=== PATIENT | female | born 1985 | race Caucasian/White ===

== ENCOUNTER 2016-03-26 22:37 | Emergency (ER) | payer SELFPAY ==
[~2016-03-26] VITALS: Ht 172.7 cm; Wt 115.9 kg
[~2016-03-26 22:37] MED LIST: INSULIN SQ; LANTUS2P SQ; NOVOLOGP2 SQ
[2016-03-26 22:39] VITALS: BP 135/84; PULSE 101; RESP 16; TEMP 98.1; O2SAT 98
[2016-03-27 00:43] VITALS: BP 124/77; PULSE 88; RESP 18; O2SAT 98
[2016-03-27] MEDS ORDERED: LEVEMIR SQ ×2 (00:55→03:04)
--- NOTE | 2016-03-27 01:19 | RADRPT ---
EXAM DATE/TIME: 03/27/2016 01:13 [facility] COMPARISON: CHEST PA & LAT, February 28, 2016, 1:41. CHEST SINGLE AP, August 31, 2014, 17:24. INDICATIONS : Generalized weakness. MEDICAL HISTORY : None. SURGICAL HISTORY : None. ENCOUNTER: Initial ACUITY: 2 days PAIN SCORE: 1/10 LOCATION: Bilateral chest FINDINGS: A single view of the chest demonstrates the lungs to be symmetrically aerated without evidence of mas s, infiltrate or effusion. The cardiomediastinal contours are unremarkable. Osseous structures are intact. CONCLUSION: Normal examination for a patient of this age. No significant change has occurred. Marcos Tellez MD on March 27, 2016 at 1:17 Board Certified Radiologist. This report was verified electronically.
[2016-03-27] MEDS ORDERED: SODIUM CHLOR 0.9% 1000 ML INJ 1,000 ML IV ONE ×2 (01:30→02:15)
[2016-03-27] MEDS ORDERED: ONDANSETRON HCL 4 MG/2 ML VIAL IV ONE (01:30)
--- NOTE | 2016-03-27 01:35 | PD ---
HPI Chief Complaint: Dizziness Time Seen by Provider: 00:43 Travel History International Travel<30 days: No Contact w/Intl Traveler<30days: No Traveled to known affect area: No History of Present Illness HPI The patient is a 31 year old female who presents to the [facility] emergency department with a history of lightheaded sensation that she reports began yesterday. She reports that it began after she was cooking at approximately 8 PM. She reports that she began to feel lightheaded and dizzy and had a sensation that her heart was racing. She laid down on the ground for approximately 2 hours and the symptoms seemed to gradually improve. She reports that since then she's just had generalized weakness. She reports that she's had nausea and vomiting 2 yesterday. She reports that she's had persistent nausea without vomiting today. She reports that she's had diarrhea that began today. She reports that she's moved her bowels 3-4 times. She denies having any blood in her stool or black or tarry stools. She reports that she is an insulin-dependent diabetic. She was last admitted to the hospital with DKA in February. She reports that she ran out of her Levemir on Saturday and has not been able to get in touch with her primary care physician, Dr. Mabry. She reports that she is on 50 units twice a day. She reports that she last administered this on Saturday morning. She reports that this morning her blood sugar was last checked and found to be in the 300s. She reports that at that time she did administer 15 units of NovoLog. She reports having generalized body aches. The patient denies any recent fevers, cough, congestion , neck pain, chest pain, shortness of breath, abdominal pain, urinary symptoms, or neurologic symptoms. LMP February 29, 2016 [facility] Past Medical History Narrative Medical The patient's past medical history is significant for diabetes mellitus, insulin -dependent, diagnosed in 2010, hyperlipidemia, migraine headaches, history of syncope in 2009. Anxiety: Yes Depression: Yes Cancer: Yes (HX) Cardiovascular Problems: No Chemotherapy: No Cerebrovascular Accident: No Diabetes: Yes Patient Takes Glucophage: No Diminished Hearing: No Endocrine: Yes Gastrointestinal Disorders: No Genitourinary: No Headaches: Yes Immune Disorder: No Implanted Vascular Access Dvce: No Musculoskeletal: No Neurologic: Yes Psychiatric: Yes Reproductive: Yes Respiratory: No Immunizations Current: Yes Migraines: Yes Radiation Therapy: No Seizures: No Thyroid Disease: No ?: Not LMP: 03/04/16 : 0 Ovarian Cysts: Yes Past Surgical History Narrative Surgical The patient's past surgical history is significant for cholecystectomy, LEEP procedure. Abdominal Surgery: Yes (GALL BLADDER) AICD: No Arteriovenous Shunt: No Cardiac Surgery: No Cholecystectomy: Yes Ear Surgery: No Endocrine Surgery: No Genitourinary Surgery: Yes Gynecologic Surgery: Yes (LEEP) Insulin Pump: No Joint Replacement: No Oral Surgery: No Pacemaker: No Thoracic Surgery: No Other Surgery: Yes Social History Alcohol Use: No Tobacco Use: Yes (EVERY ONCE IN A WHILE) Substance Use: No Allergies-Medications (Allergen,Severity, Reaction): Coded Allergies: Dilaudid (Verified Allergy, Severe, RASH, SEVERE STOMACH PAINS, 03/27/16) Lantus (Verified Allergy, Severe, 03/27/16) PT STATES MED CAUSES MILD DKA Morphine (Verified Allergy, Severe, ITCHING, HYSTERICAL, 03/27/16) Shellfish (Verified Allergy, Unknown, 03/27/16) Reported Meds & Prescriptions Reported Meds & Active Scripts Active Levemir Inj (Insulin Detemir) 1,000 unit/ 10 ML Vial 50 Units SQ BID 30 Days Do not mix with any other Insulin. [Insulin syringes] Box SQ Use as directed Novolog Inj (Insulin Aspart) 1,000 Unit/10 Ml Vial 0 SQ DIRECTED Sliding Scale as directed. Reported Levemir Inj (Insulin Detemir) 1,000 unit/ 10 ML Vial 50 Units SQ BID Do not mix with any other Insulin. Review of Systems Except as stated in HPI: all other systems reviewed are Neg General / Constitutional: No: Fever Eyes: No: Visual changes HENT: Positive: Lightheadedness, No: Headaches Cardiovascular: Positive: Palpitations, Tachycardia, Syncope (near-syncope), No: Chest Pain or Discomfort Respiratory: No: Shortness of Breath Gastrointestinal: Positive: Nausea, Vomiting, Diarrhea, Changes in Bowel Habits , Loss of Appetite, No: Abdominal Pain, Indigestion Genitourinary: No: Dysuria Musculoskeletal: No: Pain Skin: No Rash Neurologic: Positive: Weakness (generalized weakness), Dizziness, No: Focal Abnormalities, Change in Mentation, Slurred Speech, Sensory Disturbance Psychiatric: No: Depression Endocrine: No: Polydipsia Hematologic/Lymphatic: No: Easy Bruising Physical Exam Narrative General: The patient is a well-developed well-nourished female in no acute distress. Head and Neck exam: Head is normocephalic atraumatic. Eyes: Pupils are equal round and reactive to light. Nose: Midline septum with pink mucous membranes Mouth: Dentition unremarkable. Moist mucus membranes. Posterior oropharynx is not erythematous. No tonsillar hypertrophy. Uvula midline. Airway patent. Neck: No palpable lymphadenopathy. No nuchal rigidity. No thyromegaly. Cardiovascular: Regular rate and rhythm without murmurs, gallops, or rubs. Lungs: Clear to auscultation bilaterally. No wheezes, rhonchi, or rales. Abdomen: Soft, without tenderness to palpation in all 4 quadrants of the abdomen. No guarding, rebound, or rigidity. Normal bowel sounds are audible. Extremities: No clubbing, cyanosis, or edema. 2+ pulses in all 4 extremities. No calf tenderness on palpation. Back: No spinous process tenderness to palpation. No costovertebral angle tenderness to palpation. Neurologic Exam: Grossly nonfocal. Skin Exam: No rash noted. Intact skin that is warm and dry. Data Data Last Documented VS Vital Signs Date Time Temp Pulse Resp B/P Pulse Ox O2 Delivery O2 Flow Rate FiO2 03/27/16 01:54 69 18 115/70 75 20 108/70 69 18 113/78 03/27/16 00:43 97 Room Air 03/26/16 22:39 98.1 Orders Electrocardiogram (03/26/16 22:45) Complete Blood Count With Diff (03/27/16 00:50) Comprehensive Metabolic Panel (03/27/16 00:50) Creatine Kinase (Cpk) (03/27/16 00:50) Ckmb (Isoenzyme) Profile (03/27/16 00:50) Troponin I (03/27/16 00:50) Lipase (03/27/16 00:50) Urinalysis - C+S If Indicated (03/27/16 00:50) D-Dimer (03/27/16 00:50) Magnesium (Mg) (03/27/16 00:50) Alcohol (Ethanol) (03/27/16 00:50) Drug Screen, Random Urine (03/27/16 00:50) Beta Hydroxybutyrate (Acetone) (03/27/16 00:50) Chest, Single Ap (03/27/16 00:50) Iv Access Insert/Monitor (03/27/16 00:50) Ecg Monitoring (03/27/16 00:50) Oximetry (03/27/16 00:50) Ed Urine Pregnancytest Poc (03/27/16 00:50) Sodium Chlor 0.9% 1000 Ml Inj (Ns 1000 M (03/27/16 01:30) Ondansetron Inj (Zofran Inj) (03/27/16 01:30) Orthostatic Vital Signs (03/27/16 01:35) Sodium Chlor 0.9% 1000 Ml Inj (Ns 1000 M (03/27/16 02:15) Insulin Human Regular Inj (Novolin R Inj (03/27/16 02:30) Blood Glucose (03/27/16 02:30) Labs Laboratory Tests Test 03/27/16 01:00 White Blood Count 8.8 TH/MM3 Red Blood Count 4.96 MIL/MM3 Hemoglobin 14.0 GM/DL Hematocrit 41.9 % Mean Corpuscular Volume 84.4 FL Mean Corpuscular Hemoglobin 28.3 PG Mean Corpuscular Hemoglobin 33.5 % Concent Red Cell Distribution Width 13.1 % Platelet Count 307 TH/MM3 Mean Platelet Volume 10.2 FL Neutrophils (%) (Auto) 66.0 % Lymphocytes (%) (Auto) 22.5 % Monocytes (%) (Auto) 7.9 % Eosinophils (%) (Auto) 2.8 % Basophils (%) (Auto) 0.8 % Neutrophils # (Auto) 5.8 TH/MM3 Lymphocytes # (Auto) 2.0 TH/MM3 Monocytes # (Auto) 0.7 TH/MM3 Eosinophils # (Auto) 0.2 TH/MM3 Basophils # (Auto) 0.1 TH/MM3 CBC Comment DIFF FINAL Differential Comment D-Dimer Quantitative (PE/DVT) 0.23 MG/L FEU Urine Color LIGHT-YELLOW Urine Turbidity CLEAR Urine pH 5.5 Urine Specific Parnell 1.038 Urine Protein NEG mg/dL Urine Glucose (UA) 1000 mg/dL Urine Ketones 80 mg/dL Urine Occult Blood NEG Urine Nitrite NEG Urine Bilirubin NEG Urine Urobilinogen LESS THAN 2.0 MG/DL Urine Leukocyte Esterase NEG Urine RBC 1 /hpf Urine WBC LESS THAN 1 /hpf Urine Squamous Epithelial 1 /hpf Cells Urine Bacteria RARE /hpf Microscopic Urinalysis Comment CULT NOT INDICATED Sodium Level 134 MEQ/L Potassium Level 3.8 MEQ/L Chloride Level 99 MEQ/L Carbon Dioxide Level 23.9 MEQ/L Anion Gap 11 MEQ/L Blood Urea Nitrogen 13 MG/DL Creatinine 0.71 MG/DL Estimat Glomerular Filtration 96 ML/MIN Rate Random Glucose 384 MG/DL Calcium Level 8.8 MG/DL Magnesium Level 1.6 MG/DL Total Bilirubin 0.5 MG/DL Aspartate Amino Transf 9 U/L (AST/SGOT) Alanine Aminotransferase 17 U/L (ALT/SGPT) Alkaline Phosphatase 16 U/L Total Creatine Kinase 32 U/L Troponin I LESS THAN 0.02 NG/ML Total Protein 7.4 GM/DL Albumin 3.3 GM/DL Lipase 58 U/L Urine Opiates Screen NEG Urine Barbiturates Screen NEG Urine Amphetamines Screen NEG Urine Benzodiazepines Screen NEG Urine Cocaine Screen NEG Urine Cannabinoids Screen POS Ethyl Alcohol Level LESS THAN 3 MG/DL B-Hydroxybutyrate 1.12 MMOL/L MDM Medical Decision Making Medical Screen Exam Complete: Yes Emergency Medical Condition: Yes Medical Record Reviewed: Yes Interpretation(s) Last Impressions Chest X-Ray 03/27/16 0050 Signed Impressions: Service Date/Time: Sunday, March 27, 2016 01:13 - CONCLUSION: Normal examination for a patient of this age. No significant change has occurred. Marcos Tellez MD Differential Diagnosis Vasovagal near syncope, versus orthostasis, versus dehydration, versus DKA, versus hyperglycemia Narrative Course During the course of the patients emergency department visit, the patients history, examination, and differential diagnosis were reviewed with the patient. The patient had IV access obtained and blood work sent for analysis. The patient was placed on a athletic monitor with oximetry and blood pressure monitoring. An EKG was ordered. The patient's EKG was done on arrival. The patient has a normal sinus rhythm heart rate of 93, no acute ST segment elevation. T waves are inverted in V1. Orthostatic vital signs were ordered. Orthostatic vital signs were unremarkable. The patient was provided normal saline 1 L IV fluid bolus which was repeated 1. The patient was given Zofran 4 mg IV times one for nausea. The patients laboratory studies were reviewed and remarkable for a CBC that is unremarkable. CMP is remarkable for sodium of 134, glucose 384 with a normal anion gap, AST 9, alkaline phosphatase 16, cardiac enzymes unremarkable, lipase 58, d-dimer is 0.23 decreased the likelihood of pulmonary embolism in this patient with no other significant risk factors. Urinalysis shows 10 glucose 80 ketones otherwise unremarkable. Urine drug screen is positive for marijuana, beta hydroxybutyrate is 1.12, alcohol less than 3. Radiology studies were reviewed and remarkable for a chest x-ray that showed no acute abnormality. The patient's blood sugar will be repeated after her liter of normal saline. The patient's blood sugar was 413. The patient was given regular insulin 10 units subcutaneous 1. The patient's second liter of fluid will be continued. The patient's blood sugar will be repeated in an hour. The patient's lightheaded sensation is likely related to dehydration from hyperglycemia and not being on her Levemir. The patient will be hydrated. The patient's blood sugar will be improved. The patient will be discharged home with a prescription for Levemir. The patient's blood sugar began to improve and the patient was feeling well. The patient is resting comfortably and feels better, is alert and in no distress. The patients results and examination findings were discussed with the patient. The repeat examination is unremarkable and benign. The history, exam, diagnostic testing, and current condition do not suggest any significant pathology to warrant further testing, continued ED treatment, admission, or surgical evaluation at this point. The vital signs have been stable. The patient does not have uncontrollable pain, intractable vomiting, or other significant symptoms. The patient's condition is stable and appropriate for discharge. The patient will pursue further outpatient evaluation with a primary care physician or other designated or consulting physician as indicated in the discharge instructions. The patient expressed understanding and was agreeable with this plan. Diagnosis Primary Impression: Hyperglycemia Additional Impression: Lightheadedness Referrals: Primary Care Physician 2 days Patient Instructions: Diabetic Hyperglycemia (ED), General Instructions Med/Other Pt SpecificInfo: Prescription(s) given Scripts Insulin Detemir Inj (Levemir Inj)1,000 unit/ 10 ML Vial50 Units SQ BID 30 Days Ref 0 Do not mix with any other Insulin. Prov:Yuridia Benton MD 03/27/16 Disposition: DISCHARGE HOME Condition: Stable Yuridia Benton MD Mar 27, 2016 01:34
[2016-03-27 01:36] LABS: BACTERIA, URINE RARE /hpf; BLOOD, URINE NEG (NEG); COMMENT (UR) CULT NOT INDICATED; CULTURE IF INDICATED CULT NOT INDICATED; GLUCOSE,URINE 1000 mg/dL (NEG); KETONE, URINE 80 mg/dL (NEG); NITRITE,URINE NEG (NEG); PH, URINE 5.5 (5.0-8.5); SQUAMOUS EPITHELIAL CELL URINE 1 /hpf (0-5); URINE COLOR LIGHT-YELLOW (YELLW/STRAW)
[2016-03-27 01:42] LABS: AMPHETAMINE, URINE NEG (NEG); BARBITURATES, URINE NEG (NEG); COCAINE, URINE NEG (NEG)
[2016-03-27 01:50] LABS: AUTOMATED NEUTROPHIL # 5.8 TH/MM3 (1.8-7.7); BASOPHIL # 0.1 TH/MM3 (0-0.2); BASOPHIL % 0.8 % (0.0-2.0); EOSINOPHIL # 0.2 TH/MM3 (0-0.4); EOSINOPHIL % 2.8 % (0.0-4.0); HEMATOCRIT 41.9 % (35.0-46.0); HEMO FLAGS DIFF FINAL; LYMPH % 22.5 % (9.0-44.0); MEAN CELL VOLUME 84.4 FL (80.0-100.0); MEAN CORPUSCULAR HEMOGLOBIN 28.3 PG (27.0-34.0); MEAN CORPUSCULAR HGB CONC 33.5 % (32.0-36.0); MONO % 7.9 % (0.0-8.0); PLATELET COUNT 307 TH/MM3 (150-450); RED BLOOD COUNT 4.96 MIL/MM3 (4.00-5.30); RED CELL DISTRIBUTION WIDTH 13.1 % (11.6-17.2); WHITE BLOOD COUNT 8.8 TH/MM3 (4.0-11.0)
[2016-03-27 01:54] VITALS: BP_SYST 108; BP_SYST 113; BP_SYST 115; BP_DIAS 70; BP_DIAS 78; RESP 18; RESP 20
[2016-03-27 01:58] LABS: ALT (GPT) 17 U/L (10-53); ANION GAP 11 MEQ/L (5-15); AST (GOT) 9 U/L (15-37); BICARBONATE 23.9 MEQ/L (21.0-32.0); BLOOD UREA NITROGEN 13 MG/DL (7-18); CHLORIDE 99 MEQ/L (98-107); GLOMERULAR FILTRATION RATE 96 ML/MIN (>89); MAGNESIUM 1.6 MG/DL (1.5-2.5); POTASSIUM 3.8 MEQ/L (3.5-5.1); SODIUM (NA) 134 MEQ/L (136-145)
[2016-03-27 02:01] LABS: ALKALINE PHOSPHATASE 16 U/L (45-117); BETA-HYDROXYBUTYRATE 1.12 MMOL/L (0.00-0.39); TOTAL BILIRUBIN ADULT 0.5 MG/DL (0.2-1.0)
[2016-03-27 02:20] LABS: CREATINE KINASE 32 U/L (26-192)
[2016-03-27] MEDS ORDERED: INSULIN HUMAN REGULAR 1,000 UNITS/10 ML VIAL SQ ONE (02:30)
--- NOTE | 2016-03-27 16:47 | EKG ---
Date Performed: 03/26/2016 Time Performed: 22:51:49 PTAGE: 31 years EKG: Sinus rhythm Compared to prior tracing no significant change NORMAL ECG PREVIOUS TRACING 02/28/2016 @ 00.53.33 DOCTOR: Brooke Miguel Interpretating Date/Time 03/27/2016 16:45:31
[2016-03-28] MEDS ORDERED: LEVEMIR SQ ×2 (09:10→09:19)
[2016-03-28] MEDS ORDERED: NOVOLOGP2 SQ ×2 (09:10→09:19)
[2016-03-28] MEDS ORDERED: INSULIN SQ ×2 (09:10→09:19)
[2016-03-28] MEDS ORDERED: GABA300C5 PO ×2 (09:19→09:20)
[2016-03-28] MEDS ORDERED: BAYETES (09:19)
== END 2016-03-27 05:31 | disposition home or self-care (01) ==
LOC: NEPC 22:37
DX: R73.9 Hyperglycemia, unspecified (principal); R11.2 Nausea with vomiting, unspecified; R19.7 Diarrhea, unspecified; E11.8 Type 2 diabetes mellitus with unspecified complications; Z79.4 Long term (current) use of insulin; R42 Dizziness and giddiness; R53.1 Weakness
CPT/HCPCS: 71010; 80053; 80307; 80320; 81001; 82010; 82550; 83690; 83735; 84484; 84703; 85025; 85379; 93005; 96361; 96372; 96374; 99285; J1815; J2405; J7030

== ENCOUNTER 2016-04-22 22:23 | Emergency (ER) | payer SELFPAY ==
[~2016-04-22] VITALS: Ht 172.7 cm; Wt 115.0 kg
[~2016-04-22 22:23] MED LIST changes: +BAYETES; +GABA300C5 PO; -LANTUS2P SQ; +LEVEMIR SQ
[2016-04-22 22:25] VITALS: BP 129/82; PULSE 102; RESP 20; TEMP 98; O2SAT 98
[2016-04-23] MEDS ORDERED: ONDANSETRON HCL 4 MG/2 ML VIAL IV ONE
[2016-04-23 00:11] LABS: BLOOD GAS BASE EXCESS -3.4 mmol/L (-2-2); BLOOD GAS CARBOXYHEMOGLOBIN 2.2 % (0-4); BLOOD GAS HCO3 20 mmol/L (22-26); BLOOD GAS METHEMOGLOBIN 1.8 % (0-2); BLOOD GAS O2 HGB SATURATION 93 % (90-100); BLOOD GAS OXYGEN CONTENT 18.5 Vol % (12.0-20.0); BLOOD GAS PCO2 31 mmHg (38-42); BLOOD GAS PO2 93 mmHG (61-120); CRITICAL VALUE NO; DRAW SITE RT RADIAL; FIO2 21 %; NUMBER OF ARTERIAL PUNCTURES 1; STAT YES; TEMP CORR TO 98.6; ULNAR PULSE PRESENT
[2016-04-23 00:21] VITALS: BP 112/66; PULSE 79; RESP 18; TEMP 97.8; O2SAT 99
[2016-04-23 00:26] LABS: AUTOMATED NEUTROPHIL # 6.6 TH/MM3 (1.8-7.7); BASOPHIL # 0.1 TH/MM3 (0-0.2); BASOPHIL % 1.2 % (0.0-2.0); EOSINOPHIL # 0.1 TH/MM3 (0-0.4); EOSINOPHIL % 1.4 % (0.0-4.0); HEMATOCRIT 40.9 % (35.0-46.0); HEMO FLAGS DIFF FINAL; LYMPH % 17.1 % (9.0-44.0); LYMPHOCYTE # 1.5 TH/MM3 (1.0-4.8); MEAN CELL VOLUME 84.9 FL (80.0-100.0); MEAN CORPUSCULAR HEMOGLOBIN 29.3 PG (27.0-34.0); MEAN CORPUSCULAR HGB CONC 34.5 % (32.0-36.0); MONO % 5.9 % (0.0-8.0); NEUT % 74.4 % (16.0-70.0); PLATELET COUNT 298 TH/MM3 (150-450); RED BLOOD COUNT 4.82 MIL/MM3 (4.00-5.30); RED CELL DISTRIBUTION WIDTH 13.1 % (11.6-17.2); WHITE BLOOD COUNT 8.9 TH/MM3 (4.0-11.0)
[2016-04-23 00:29] LABS: BACTERIA, URINE RARE /hpf; BLOOD, URINE NEG (NEG); GLUCOSE,URINE 1000 mg/dL (NEG); HYALINE CAST, URINE 1 /lpf (RARE); KETONE, URINE 150 mg/dL (NEG); MUCUS URINE FEW /lpf (OCC); NITRITE,URINE NEG (NEG); PH, URINE 5.5 (5.0-8.5); SQUAMOUS EPITHELIAL CELL URINE 9 /hpf (0-5); URINE COLOR LIGHT-YELLOW (YELLW/STRAW)
[2016-04-23 00:30] LABS: COMMENT (UR) CULT NOT INDICATED; CULTURE IF INDICATED CULT NOT INDICATED
--- NOTE | 2016-04-23 00:43 | RADRPT ---
EXAM DATE/TIME: 04/23/2016 00:26 [facility] COMPARISON: CHEST SINGLE AP, March 27, 2016, 1:13. INDICATIONS : Shortness of breath. MEDICAL HISTORY : None. SURGICAL HISTORY : None. ENCOUNTER: Initial ACUITY: 1 day PAIN SCORE: 0/10 LOCATION: Bilateral chest FINDINGS: A single view of the chest demonstrates the lungs to be symmetrically aerated without evidence of mas s, infiltrate or effusion. The cardiomediastinal contours are unremarkable. Osseous structures are intact. CONCLUSION: No acute disease. John Flores MD on April 23, 2016 at 0:41 Board Certified Radiologist. This report was verified electronically.
[2016-04-23 00:50] LABS: ALT (GPT) 20 U/L (10-53); ANION GAP 14 MEQ/L (5-15); AST (GOT) 15 U/L (15-37); BICARBONATE 23.3 MEQ/L (21.0-32.0); BLOOD UREA NITROGEN 9 MG/DL (7-18); CHLORIDE 98 MEQ/L (98-107); GLOMERULAR FILTRATION RATE 94 ML/MIN (>89); MAGNESIUM 1.6 MG/DL (1.5-2.5); POTASSIUM 3.8 MEQ/L (3.5-5.1); SODIUM (NA) 135 MEQ/L (136-145)
[2016-04-23 00:53] LABS: ALKALINE PHOSPHATASE 18 U/L (45-117); BETA-HYDROXYBUTYRATE 3.45 MMOL/L (0.00-0.39); TOTAL BILIRUBIN ADULT 0.7 MG/DL (0.2-1.0)
[2016-04-23] MEDS ORDERED: INSULIN HUMAN REGULAR 1,000 UNITS/10 ML VIAL IV PUSH ONE (01:00)
[2016-04-23] MEDS ORDERED: SODIUM CHLOR 0.9% 1000 ML INJ 1,000 ML IV ONE ×2 (01:00)
--- NOTE | 2016-04-23 02:45 | PD ---
HPI Chief Complaint: GI Complaint Time Seen by Provider: 23:51 Travel History International Travel<30 days: No Contact w/Intl Traveler<30days: No Traveled to known affect area: No History of Present Illness HPI The patient is a 31 year old female who presents to the [facility] emergency department with a history of nausea, vomiting, and diarrhea that began yesterday. She reports that it began after she ate a taco that tasted strange prior to this. The patient reports that she last checked her blood sugar prior to arrival and was 317. She reports that she was first diagnosed with diabetes mellitus and 2009. Reports that she last administered 50 units of Levemir in the morning. She reports that she last gave herself NovoLog 12 units at 7:55 PM today. The patient denies having any focal abdominal pain. She reports having generalized abdominal pain prior to having the diarrhea. She reports that she's had nausea and vomiting 15 times today, diarrhea 15 times today. She reports that the stool is yellow in color. She denies having any blood or mucus in her stool. She denies having any sick contacts, foreign travel, or recent antibiotic use. The patient denies any recent fevers, cough, congestion, neck pain, chest pain, shortness of breath, urinary symptoms, or neurologic symptoms. LMP: End March 2016. [facility] Past Medical History Narrative Medical The patient's past medical history is significant for diabetes mellitus, hyperlipidemia, migraine headaches, history of syncope, history of cervical dysplasia. Anxiety: Yes Depression: Yes Cancer: Yes (HX) Cardiovascular Problems: No Chemotherapy: No Cerebrovascular Accident: No Diabetes: Yes Patient Takes Glucophage: No Diminished Hearing: No Endocrine: Yes Gastrointestinal Disorders: No Genitourinary: No Headaches: Yes Immune Disorder: No Implanted Vascular Access Dvce: No Musculoskeletal: No Neurologic: Yes Psychiatric: Yes Reproductive: Yes Respiratory: No Immunizations Current: Yes Migraines: Yes Radiation Therapy: No Seizures: No Thyroid Disease: No ?: Not LMP: 03/28/16 : 0 Ovarian Cysts: Yes Past Surgical History Narrative Surgical The patient's past surgical history significant for a cholecystectomy, LEEP procedure. Abdominal Surgery: Yes (GALL BLADDER) AICD: No Arteriovenous Shunt: No Cardiac Surgery: No Cholecystectomy: Yes Ear Surgery: No Endocrine Surgery: No Genitourinary Surgery: Yes Gynecologic Surgery: Yes (LEEP) Insulin Pump: No Joint Replacement: No Oral Surgery: No Pacemaker: No Thoracic Surgery: No Other Surgery: Yes Social History Alcohol Use: No Tobacco Use: Yes (EVERY ONCE IN A WHILE) Substance Use: No Allergies-Medications (Allergen,Severity, Reaction): Coded Allergies: Dilaudid (Verified Allergy, Severe, RASH, SEVERE STOMACH PAINS, 04/22/16) Lantus (Verified Allergy, Severe, 04/22/16) PT STATES MED CAUSES MILD DKA Morphine (Verified Allergy, Severe, ITCHING, HYSTERICAL, 04/22/16) Shellfish (Verified Allergy, Unknown, 04/22/16) Reported Meds & Prescriptions Reported Meds & Active Scripts Active Zofran Odt (Ondansetron Odt) 4 Mg Tab 4 Mg SL Q6HR PRN Gabapentin 300 Mg Cap 300 Mg PO TID [employer] Contour Blood Gluco (Glucose Blood) 1 Kari Kari 1 Strip .ROUTE 5 TIMES A DAY Patient is a brittle diabetic that needs to check her blood glucose at least 5times daily. Levemir Inj (Insulin Detemir) 1,000 unit/ 10 ML Vial 50 Units SQ BID Do not mix with any other Insulin. [Insulin syringes] Box SQ Use as directed Novolog Inj (Insulin Aspart) 1,000 Unit/10 Ml Vial 0 SQ DIRECTED Sliding Scale as directed. Review of Systems Except as stated in HPI: all other systems reviewed are Neg General / Constitutional: No: Fever Eyes: No: Visual changes HENT: No: Headaches Cardiovascular: No: Chest Pain or Discomfort Respiratory: No: Shortness of Breath Gastrointestinal: Positive: Nausea, Vomiting, Diarrhea, Abdominal Pain, Changes in Bowel Habits, No: Hematemesis, Hematochezia, Indigestion, Loss of Appetite Genitourinary: Positive: Frequency, No: Urgency, Dysuria, Flank Pain Musculoskeletal: No: Pain Skin: No Rash Neurologic: No: Weakness Psychiatric: No: Depression Endocrine: No: Polydipsia Hematologic/Lymphatic: No: Easy Bruising Physical Exam Narrative General: The patient is well-developed well-nourished female in no acute distress. Head and Neck exam: Head is normocephalic atraumatic. Eyes: Pupils are equal round and reactive to light. Nose: Midline septum with pink mucous membranes Mouth: Dentition unremarkable. Moist mucus membranes. Posterior oropharynx is not erythematous. No tonsillar hypertrophy. Uvula midline. Airway patent. Neck: No palpable lymphadenopathy. No nuchal rigidity. No thyromegaly. Cardiovascular: Regular rate and rhythm without murmurs, gallops, or rubs. Lungs: Clear to auscultation bilaterally. No wheezes, rhonchi, or rales. Abdomen: Soft, without tenderness to palpation in all 4 quadrants of the abdomen. No guarding, rebound, or rigidity. Normal bowel sounds are audible. No tenderness on palpation of McBurney's point. Negative García sign. Extremities: No clubbing, cyanosis, or edema. 2+ pulses in all 4 extremities. No calf tenderness on palpation. Back: No spinous process tenderness to palpation. No costovertebral angle tenderness to palpation. Neurologic Exam: Grossly nonfocal. Skin Exam: No rash noted. Intact skin that is warm and dry. Data Data Last Documented VS Vital Signs Date Time Temp Pulse Resp B/P Pulse Ox O2 Delivery O2 Flow Rate FiO2 04/23/16 03:59 98.4 85 18 110/69 100 Room Air Orders Electrocardiogram (04/22/16 23:57) Complete Blood Count With Diff (04/22/16 23:57) Comprehensive Metabolic Panel (04/22/16 23:57) Arterial Blood Gas (Abg) (04/22/16 23:57) Lipase (04/22/16 23:57) Urinalysis - C+S If Indicated (04/22/16 23:57) Magnesium (Mg) (04/22/16 23:57) Beta Hydroxybutyrate (Acetone) (04/22/16 23:57) Chest, Single Ap (04/22/16 23:57) Iv Access Insert/Monitor (04/22/16 23:57) Ecg Monitoring (04/22/16 23:57) Oximetry (04/22/16 23:57) Ed Urine Pregnancytest Poc (04/22/16 23:57) Sodium Chlor 0.9% 1000 Ml Inj (Ns 1000 M (04/23/16 00:00) Ondansetron Inj (Zofran Inj) (04/23/16 00:00) Sodium Chlor 0.9% 1000 Ml Inj (Ns 1000 M (04/23/16 01:00) Insulin Human Regular Inj (Novolin R Inj (04/23/16 01:00) Oral Rehydration (04/23/16 01:03) Blood Glucose (04/23/16 01:03) Insulin Human Regular Inj (Novolin R Inj (04/23/16 03:45) Acetaminophen (Tylenol) (04/23/16 04:15) Labs Laboratory Tests Test 04/23/16 04/23/16 00:01 00:14 Blood Gas Puncture Site RT RADIAL Blood Gas Patient Temperature 98.6 Blood Gas HCO3 20 mmol/L Blood Gas Base Excess -3.4 mmol/L Blood Gas Oxygen Saturation 93 % Arterial Blood pH 7.43 Arterial Blood Partial 31 mmHg Pressure CO2 Arterial Blood Partial 93 mmHG Pressure O2 Arterial Blood Oxygen Content 18.5 Vol % Arterial Blood 2.2 % Carboxyhemoglobin Arterial Blood Methemoglobin 1.8 % Blood Gas Hemoglobin 14.0 G/DL Blood Gas Inspired Oxygen 21 % White Blood Count 8.9 TH/MM3 Red Blood Count 4.82 MIL/MM3 Hemoglobin 14.1 GM/DL Hematocrit 40.9 % Mean Corpuscular Volume 84.9 FL Mean Corpuscular Hemoglobin 29.3 PG Mean Corpuscular Hemoglobin 34.5 % Concent Red Cell Distribution Width 13.1 % Platelet Count 298 TH/MM3 Mean Platelet Volume 10.1 FL Neutrophils (%) (Auto) 74.4 % Lymphocytes (%) (Auto) 17.1 % Monocytes (%) (Auto) 5.9 % Eosinophils (%) (Auto) 1.4 % Basophils (%) (Auto) 1.2 % Neutrophils # (Auto) 6.6 TH/MM3 Lymphocytes # (Auto) 1.5 TH/MM3 Monocytes # (Auto) 0.5 TH/MM3 Eosinophils # (Auto) 0.1 TH/MM3 Basophils # (Auto) 0.1 TH/MM3 CBC Comment DIFF FINAL Differential Comment Urine Color LIGHT-YELLOW Urine Turbidity HAZY Urine pH 5.5 Urine Specific [place] 1.019 Urine Protein NEG mg/dL Urine Glucose (UA) 1000 mg/dL Urine Ketones 150 mg/dL Urine Occult Blood NEG Urine Nitrite NEG Urine Bilirubin NEG Urine Urobilinogen LESS THAN 2.0 MG/DL Urine Leukocyte Esterase NEG Urine RBC LESS THAN 1 /hpf Urine WBC 2 /hpf Urine Squamous Epithelial 9 /hpf Cells Urine Bacteria RARE /hpf Urine Hyaline Casts 1 /lpf Urine Mucus FEW /lpf Microscopic Urinalysis Comment CULT NOT INDICATED Sodium Level 135 MEQ/L Potassium Level 3.8 MEQ/L Chloride Level 98 MEQ/L Carbon Dioxide Level 23.3 MEQ/L Anion Gap 14 MEQ/L Blood Urea Nitrogen 9 MG/DL Creatinine 0.72 MG/DL Estimat Glomerular Filtration 94 ML/MIN Rate Random Glucose 369 MG/DL Calcium Level 9.0 MG/DL Magnesium Level 1.6 MG/DL Total Bilirubin 0.7 MG/DL Aspartate Amino Transf 15 U/L (AST/SGOT) Alanine Aminotransferase 20 U/L (ALT/SGPT) Alkaline Phosphatase 18 U/L Total Protein 7.5 GM/DL Albumin 3.6 GM/DL Lipase 68 U/L B-Hydroxybutyrate 3.45 MMOL/L MDM Medical Decision Making Medical Screen Exam Complete: Yes Emergency Medical Condition: Yes Medical Record Reviewed: Yes Interpretation(s) Laboratory Tests Test 04/23/16 04/23/16 00:01 00:14 Blood Gas Puncture Site RT RADIAL Blood Gas Patient Temperature 98.6 Blood Gas HCO3 20 mmol/L Blood Gas Base Excess -3.4 mmol/L Blood Gas Oxygen Saturation 93 % Arterial Blood pH 7.43 Arterial Blood Partial 31 mmHg Pressure CO2 Arterial Blood Partial 93 mmHG Pressure O2 Arterial Blood Oxygen Content 18.5 Vol % Arterial Blood 2.2 % Carboxyhemoglobin Arterial Blood Methemoglobin 1.8 % Blood Gas Hemoglobin 14.0 G/DL Blood Gas Inspired Oxygen 21 % White Blood Count 8.9 TH/MM3 Red Blood Count 4.82 MIL/MM3 Hemoglobin 14.1 GM/DL Hematocrit 40.9 % Mean Corpuscular Volume 84.9 FL Mean Corpuscular Hemoglobin 29.3 PG Mean Corpuscular Hemoglobin 34.5 % Concent Red Cell Distribution Width 13.1 % Platelet Count 298 TH/MM3 Mean Platelet Volume 10.1 FL Neutrophils (%) (Auto) 74.4 % Lymphocytes (%) (Auto) 17.1 % Monocytes (%) (Auto) 5.9 % Eosinophils (%) (Auto) 1.4 % Basophils (%) (Auto) 1.2 % Neutrophils # (Auto) 6.6 TH/MM3 Lymphocytes # (Auto) 1.5 TH/MM3 Monocytes # (Auto) 0.5 TH/MM3 Eosinophils # (Auto) 0.1 TH/MM3 Basophils # (Auto) 0.1 TH/MM3 CBC Comment DIFF FINAL Differential Comment Urine Color LIGHT-YELLOW Urine Turbidity HAZY Urine pH 5.5 Urine Specific [place] 1.019 Urine Protein NEG mg/dL Urine Glucose (UA) 1000 mg/dL Urine Ketones 150 mg/dL Urine Occult Blood NEG Urine Nitrite NEG Urine Bilirubin NEG Urine Urobilinogen LESS THAN 2.0 MG/DL Urine Leukocyte Esterase NEG Urine RBC LESS THAN 1 /hpf Urine WBC 2 /hpf Urine Squamous Epithelial 9 /hpf Cells Urine Bacteria RARE /hpf Urine Hyaline Casts 1 /lpf Urine Mucus FEW /lpf Microscopic Urinalysis Comment CULT NOT INDICATED Sodium Level 135 MEQ/L Potassium Level 3.8 MEQ/L Chloride Level 98 MEQ/L Carbon Dioxide Level 23.3 MEQ/L Anion Gap 14 MEQ/L Blood Urea Nitrogen 9 MG/DL Creatinine 0.72 MG/DL Estimat Glomerular Filtration 94 ML/MIN Rate Random Glucose 369 MG/DL Calcium Level 9.0 MG/DL Magnesium Level 1.6 MG/DL Total Bilirubin 0.7 MG/DL Aspartate Amino Transf 15 U/L (AST/SGOT) Alanine Aminotransferase 20 U/L (ALT/SGPT) Alkaline Phosphatase 18 U/L Total Protein 7.5 GM/DL Albumin 3.6 GM/DL Lipase 68 U/L B-Hydroxybutyrate 3.45 MMOL/L Last Impressions Chest X-Ray 04/22/16 5051 Signed Impressions: Service Date/Time: Saturday, April 23, 2016 00:26 - CONCLUSION: No acute disease. John Flores MD Differential Diagnosis Viral versus bacterial gastroenteritis, versus DKA, versus hyperglycemia, versus electrolyte derangements, versus dehydration Narrative Course During the course of the patients emergency department visit, the patients history, examination, and differential diagnosis were reviewed with the patient. The patient had IV access obtained and blood work sent for analysis. The patient was placed on a frit coater with oximetry and blood pressure monitoring. The patient was provided in total 2 L of normal saline IV fluids. The patients laboratory studies were reviewed and remarkable for white count of 8.9, hemoglobin 14.1, platelets 298 with 74.4 neutrophils, ABG reveals a pH of 7.43, PCO2 is 31, bicarbonate 20, PO2 93, this is on room air. CMP is remarkable for sodium of 135, glucose 369, alkaline phosphatase 18, lipase 68, urinalysis shows 1000 glucose, ketones 150, rare bacteria, however there were 9 squamous epithelial cells, beta hydroxybutyrate is 3.45. The patient is not noted to be acidotic, therefore the plan is to administer IV fluids and assess for ability to by mouth hydrate. The patient was given 6 units of regular insulin IV 1. The patient's blood sugar was reassessed and began to improve. The patient was given regular insulin 5 units subcutaneous. The patient's Levemir was held as it is 4 AM and the patient will be administering this when she returns home. The patient has been able to tolerate by mouth liquids. The patient will be discharged home with a prescription for Zofran. Radiology studies were reviewed and remarkable for a chest x-ray that showed no acute abnormality. The patient is resting comfortably and feels better, is alert and in no distress. The patients results and examination findings were discussed with the patient. The repeat examination is unremarkable and benign. The history, exam, diagnostic testing, and current condition do not suggest any significant pathology to warrant further testing, continued ED treatment, admission, or surgical evaluation at this point. The vital signs have been stable. The patient does not have uncontrollable pain, intractable vomiting, or other significant symptoms. The patient's condition is stable and appropriate for discharge. The patient will pursue further outpatient evaluation with a primary care physician or other designated or consulting physician as indicated in the discharge instructions. The patient expressed understanding and was agreeable with this plan. Diagnosis Primary Impression: Nausea vomiting and diarrhea Referrals: Primary Care Physician 1 day Patient Instructions: Acute Diarrhea (ED), Acute Nausea and Vomiting (ED), Diabetic Hyperglycemia (ED), General Instructions Med/Other Pt SpecificInfo: Prescription(s) given Scripts Ondansetron Odt (Zofran Odt)4 Mg Tab4 Mg SL Q6HR PRN (Nausea/Vomiting) #7 TAB Ref 0 Prov:Yuridia Benton MD 04/23/16 Disposition: 01 DISCHARGE HOME Condition: Stable Yuridia Benton MD Apr 23, 2016 02:45
[2016-04-23] MEDS ORDERED: INSULIN HUMAN REGULAR 1,000 UNITS/10 ML VIAL SQ ONE (03:45)
[2016-04-23] MEDS ORDERED: ZOFR4TAB3 SL (03:58)
[2016-04-23 03:59] VITALS: BP 110/69; PULSE 85; RESP 18; TEMP 98.4; O2SAT 100
[2016-04-23] MEDS ORDERED: ACETAMINOPHEN 325 MG TAB PO ONE (04:15)
--- NOTE | 2016-04-23 14:22 | EKG ---
Date Performed: 04/23/2016 Time Performed: 00:09:09 PTAGE: 31 years EKG: Sinus rhythm WITH MARKED SINUS ARRHYTHMIA BORDERLINE ECG PREVIOUS TRACING : 03/26/2016 22.51 DOCTOR: Syd Villegas Interpretating Date/Time 04/23/2016 14:18:32
== END 2016-04-23 04:49 | disposition home or self-care (01) ==
LOC: NEPE 22:23
DX: R19.7 Diarrhea, unspecified (principal); R11.2 Nausea with vomiting, unspecified; E11.9 Type 2 diabetes mellitus without complications; E78.5 Hyperlipidemia, unspecified; Z72.0 Tobacco use; I49.8 Other specified cardiac arrhythmias
CPT/HCPCS: 36600; 71010; 80053; 81001; 82010; 82805; 83690; 83735; 84703; 85025; 93005; 96361; 96372; 96374; 96375; 99285; J1815; J2405; J7030

== ENCOUNTER 2016-06-28 08:29 | Emergency (ER) | payer SELFPAY ==
[~2016-06-28] VITALS: Ht 172.7 cm; Wt 110.0 kg
[~2016-06-28 08:29] MED LIST changes: +ZOFR4TAB3 SL
[2016-06-28 08:31] VITALS: BP 130/83; PULSE 98; RESP 20; TEMP 98; O2SAT 100
[2016-06-28] MEDS ORDERED: CLINDAMYCIN INJ 900 MG in SODIUM CHLORIDE 0.9% INJ 100 ML IV STA (08:57)
[2016-06-28] MEDS ORDERED: SODIUM CHLOR 0.9% 1000 ML INJ 1,000 ML IV ONE (08:57)
[2016-06-28 09:00] VITALS: BP 114/79; PULSE 91; RESP 20; O2SAT 98
[2016-06-28] MEDS ORDERED: IBUPROFEN 600 MG TAB PO ONE (09:00)
--- NOTE | 2016-06-28 09:04 | PD ---
HPI Chief Complaint: Diabetic Time Seen by Provider: 08:57 Travel History International Travel<30 days: No Contact w/Intl Traveler<30days: No Traveled to known affect area: No History of Present Illness HPI 31-year-old female with history of diabetes, states she ran out of medications yesterday, has had a 3 day history of left thigh spot that she thought was a spider bite, has been getting more red, tender, swollen and increasing in size, and she is here because of the left thigh pain and infection. She states that her sugars have been high because she ran out of medications. She denies any fevers, vomiting, or any other symptoms. Modifying Factors: None Associated Signs & Symptoms: Left thigh area redness, swelling Risk Factors: Diabetic PFSH Past Medical History Anxiety: Yes Depression: Yes Cancer: Yes (HX) Cardiovascular Problems: No Chemotherapy: No Cerebrovascular Accident: No Diabetes: Yes Patient Takes Glucophage: No Diminished Hearing: No Endocrine: Yes Gastrointestinal Disorders: No Genitourinary: No Headaches: Yes Immune Disorder: No Implanted Vascular Access Dvce: No Musculoskeletal: No Neurologic: Yes Psychiatric: Yes Reproductive: Yes Respiratory: No Immunizations Current: Yes Migraines: Yes Radiation Therapy: No Seizures: No Thyroid Disease: No Tetanus Vaccination: < 5 Years Influenza Vaccination: Yes ?: Not LMP: 06/08/16 : 0 Ovarian Cysts: Yes Past Surgical History Abdominal Surgery: Yes (GALL BLADDER) AICD: No Arteriovenous Shunt: No Cardiac Surgery: No Cholecystectomy: Yes Ear Surgery: No Endocrine Surgery: No Genitourinary Surgery: Yes Gynecologic Surgery: Yes (LEEP) Insulin Pump: No Joint Replacement: No Oral Surgery: No Pacemaker: No Thoracic Surgery: No Other Surgery: Yes Social History Alcohol Use: No Tobacco Use: No (denies) Substance Use: No Allergies-Medications (Allergen,Severity, Reaction): Coded Allergies: Dilaudid (Verified Allergy, Severe, RASH, SEVERE STOMACH PAINS, 04/22/16) Lantus (Verified Allergy, Severe, 04/22/16) PT STATES MED CAUSES MILD DKA Morphine (Verified Allergy, Severe, ITCHING, HYSTERICAL, 04/22/16) Shellfish (Verified Allergy, Unknown, 04/22/16) Reported Meds & Prescriptions Reported Meds & Active Scripts Active Motrin Ib (Ibuprofen) 200 Mg Tab 600 Mg PO Q6H PRN Clindamycin (Clindamycin HCl) 300 Mg Cap 600 Mg PO Q8H 7 Days [employer] Contour Blood Gluco (Glucose Blood) 1 Kari Kari 1 Strip .ROUTE 5 TIMES A DAY Patient is a brittle diabetic that needs to check her blood glucose at least 5times daily. Levemir Inj (Insulin Detemir) 1,000 unit/ 10 ML Vial 50 Units SQ BID Do not mix with any other Insulin. [Insulin syringes] Box SQ Use as directed Novolog Inj (Insulin Aspart) 1,000 Unit/10 Ml Vial 0 SQ DIRECTED Sliding Scale as directed. Gabapentin 300 Mg Cap 300 Mg PO TID Review of Systems Except as stated in HPI: all other systems reviewed are Neg Physical Exam Narrative GENERAL: Well-developed young white female patient who is currently not in acute distress. SKIN: Focused skin assessment warm/dry. HEAD: Atraumatic. Normocephalic. EYES: Pupils equal and round. No scleral icterus. No injection or drainage. ENT: No nasal bleeding or discharge. Mucous membranes pink and moist. NECK: Trachea midline. No JVD. CARDIOVASCULAR: Regular rate and rhythm. No murmur appreciated. RESPIRATORY: No accessory muscle use. Clear to auscultation. Breath sounds equal bilaterally. GASTROINTESTINAL: Abdomen soft, non-tender, nondistended. Hepatic and splenic margins not palpable. MUSCULOSKELETAL: No obvious deformities. No clubbing. No cyanosis. No edema. Left thigh: There is a notable in tensely indurated 3 cm left thigh area with surrounding erythema, very tender to palpation. Firm. NEUROLOGICAL: Awake and alert. No obvious cranial nerve deficits. Motor grossly within normal limits. Normal speech. PSYCHIATRIC: Appropriate mood and affect; insight and judgment normal. Data Data Last Documented VS Vital Signs Date Time Temp Pulse Resp B/P Pulse Ox O2 Delivery O2 Flow Rate FiO2 06/28/16 09:00 98 Room Air 06/28/16 09:00 91 20 114/79 06/28/16 08:31 98.0 Orders Complete Blood Count With Diff (06/28/16 08:57) Comprehensive Metabolic Panel (06/28/16 08:57) Lactic Acid Sepsis Protocol (06/28/16 08:57) Blood Culture (06/28/16 08:57) Wound Culture And Gram Stain (06/28/16 08:57) Blood Glucose (06/28/16 08:57) Ecg Monitoring (06/28/16 08:57) Iv Access Insert/Monitor (06/28/16 08:57) Oximetry (06/28/16 08:57) Oxygen Administration (06/28/16 08:57) Ibuprofen (Motrin) (06/28/16 09:00) Clindamycin Inj (Cleocin Inj) (06/28/16 08:57) Sodium Chlor 0.9% 1000 Ml Inj (Ns 1000 M (06/28/16 08:57) Beta Hydroxybutyrate (Acetone) (06/28/16 08:59) Lidocaine 1% Inj (50 Ml) (Xylocaine 1% I (06/28/16 09:15) Insulin Human Regular Inj (Novolin R Inj (06/28/16 10:30) Labs Laboratory Tests Test 06/28/16 09:15 White Blood Count 8.9 TH/MM3 Red Blood Count 4.90 MIL/MM3 Hemoglobin 13.7 GM/DL Hematocrit 42.0 % Mean Corpuscular Volume 85.8 FL Mean Corpuscular Hemoglobin 28.0 PG Mean Corpuscular Hemoglobin 32.7 % Concent Red Cell Distribution Width 12.7 % Platelet Count 278 TH/MM3 Mean Platelet Volume 10.2 FL Neutrophils (%) (Auto) 70.0 % Lymphocytes (%) (Auto) 17.4 % Monocytes (%) (Auto) 8.2 % Eosinophils (%) (Auto) 3.7 % Basophils (%) (Auto) 0.7 % Neutrophils # (Auto) 6.2 TH/MM3 Lymphocytes # (Auto) 1.5 TH/MM3 Monocytes # (Auto) 0.7 TH/MM3 Eosinophils # (Auto) 0.3 TH/MM3 Basophils # (Auto) 0.1 TH/MM3 CBC Comment DIFF FINAL Differential Comment Sodium Level 130 MEQ/L Potassium Level 4.1 MEQ/L Chloride Level 99 MEQ/L Carbon Dioxide Level 19.1 MEQ/L Anion Gap 12 MEQ/L Blood Urea Nitrogen 9 MG/DL Creatinine 0.75 MG/DL Estimat Glomerular Filtration 90 ML/MIN Rate Random Glucose 492 MG/DL Lactic Acid Level 1.2 mmol/L Calcium Level 8.7 MG/DL Total Bilirubin 0.5 MG/DL Aspartate Amino Transf 14 U/L (AST/SGOT) Alanine Aminotransferase 17 U/L (ALT/SGPT) Alkaline Phosphatase 15 U/L Total Protein 7.3 GM/DL Albumin 3.1 GM/DL B-Hydroxybutyrate 1.87 MMOL/L MDM Medical Decision Making Medical Screen Exam Complete: Yes Emergency Medical Condition: Yes Medical Record Reviewed: Yes Interpretation(s) Laboratory Tests Test 06/28/16 09:15 Monocytes (%) (Auto) 8.2 % (0.0-8.0) Sodium Level 130 MEQ/L (136-145) Carbon Dioxide Level 19.1 MEQ/L (21.0-32.0) Random Glucose 492 MG/DL (74-106) Aspartate Amino Transf 14 U/L (15-37) (AST/SGOT) Alkaline Phosphatase 15 U/L (45-117) Albumin 3.1 GM/DL (3.4-5.0) B-Hydroxybutyrate 1.87 MMOL/L (0.00-0.39) Differential Diagnosis Left thigh wound infection, abscess, hyperglycemiarule out other electrolyte abnormalities versus DKA Narrative Course Lab work shows significant leukocytosis and some elevation in ketones levels. Patient is given IV fluids and insulin ER. Blood sugar is 300 on reevaluation. Vital signs are stable in the ER. Lactate levels are unremarkable. I&D was performed on the left thigh abscess. At this point, patient had also received IV clindamycin after cultures have been done. My plan would be to release the patient with follow-up to primary care physician. Wound care instructions given. The plan was discussed with the patient and she states understanding. Diagnosis Primary Impression: DM (diabetes mellitus) Additional Impression: Abscess of left thigh Med/Other Pt SpecificInfo: Prescription(s) given Scripts Ibuprofen (Motrin Ib)200 Mg [id number] Mg PO Q6H PRN (PAIN SCALE 1 TO 10) #20 TAB Ref 0 Prov:Emma Yoon MD 06/28/16 Clindamycin 300 Mg Vug450 Mg PO Q8H 7 Days Ref 0 Prov:Emma Yoon MD 06/28/16 Glucose Blood (Otis Contour Blood Gluco)1 Kari Tes1 Strip .ROUTE 5 TIMES A DAY #150 BOX Patient is a brittle diabetic that needs to check her blood glucose at least 5times daily. Prov:Emma Yoon MD 06/28/16 Insulin Detemir Inj (Levemir Inj)1,000 unit/ 10 ML Vial50 Units SQ BID #3 VIAL Ref 0 Do not mix with any other Insulin. Prov:Emma Yoon MD 06/28/16 [Insulin syringes] No Conflict Check #1 BOX SQ Ref 0 Use as directed Prov:Emma Yoon MD 06/28/16 Insulin Aspart Inj (Novolog Inj)1,000 Unit/10 Ml Vial SQ DIRECTED #10 ML Ref 0 Sliding Scale as directed. Prov:Emma Yoon MD 06/28/16 Disposition: 01 DISCHARGE HOME Condition: Stable Emma Yoon MD Jun 28, 2016 09:04
[2016-06-28] MEDS ORDERED: LIDOCAINE HCL 1% 50 ML VIAL INFIL ONE (09:15)
[2016-06-28 09:39] LABS: AUTOMATED NEUTROPHIL # 6.2 TH/MM3 (1.8-7.7); BASOPHIL # 0.1 TH/MM3 (0-0.2); BASOPHIL % 0.7 % (0.0-2.0); EOSINOPHIL # 0.3 TH/MM3 (0-0.4); EOSINOPHIL % 3.7 % (0.0-4.0); HEMO FLAGS DIFF FINAL; LYMPH % 17.4 % (9.0-44.0); LYMPHOCYTE # 1.5 TH/MM3 (1.0-4.8); MEAN CELL VOLUME 85.8 FL (80.0-100.0); MEAN CORPUSCULAR HGB CONC 32.7 % (32.0-36.0); MONO % 8.2 % (0.0-8.0); PLATELET COUNT 278 TH/MM3 (150-450); RED CELL DISTRIBUTION WIDTH 12.7 % (11.6-17.2); WHITE BLOOD COUNT 8.9 TH/MM3 (4.0-11.0)
--- NOTE | 2016-06-28 09:44 | PD ---
Physical Exam Time Seen by Provider: 09:41 Narrative I was asked to incise and drain the abscess to the left upper medial thigh. Data Data Last Documented VS Vital Signs Date Time Temp Pulse Resp B/P Pulse Ox O2 Delivery O2 Flow Rate FiO2 06/28/16 09:00 98 Room Air 06/28/16 09:00 91 20 114/79 06/28/16 08:31 98.0 Orders Complete Blood Count With Diff (06/28/16 08:57) Comprehensive Metabolic Panel (06/28/16 08:57) Lactic Acid Sepsis Protocol (06/28/16 08:57) Blood Culture (06/28/16 08:57) Wound Culture And Gram Stain (06/28/16 08:57) Blood Glucose (06/28/16 08:57) Ecg Monitoring (06/28/16 08:57) Iv Access Insert/Monitor (06/28/16 08:57) Oximetry (06/28/16 08:57) Oxygen Administration (06/28/16 08:57) Ibuprofen (Motrin) (06/28/16 09:00) Clindamycin Inj (Cleocin Inj) (06/28/16 08:57) Sodium Chlor 0.9% 1000 Ml Inj (Ns 1000 M (06/28/16 08:57) Beta Hydroxybutyrate (Acetone) (06/28/16 08:59) Lidocaine 1% Inj (50 Ml) (Xylocaine 1% I (06/28/16 09:15) Labs Laboratory Tests Test 06/28/16 09:15 White Blood Count 8.9 TH/MM3 Red Blood Count 4.90 MIL/MM3 Hemoglobin 13.7 GM/DL Hematocrit 42.0 % Mean Corpuscular Volume 85.8 FL Mean Corpuscular Hemoglobin 28.0 PG Mean Corpuscular Hemoglobin 32.7 % Concent Red Cell Distribution Width 12.7 % Platelet Count 278 TH/MM3 Mean Platelet Volume 10.2 FL Neutrophils (%) (Auto) 70.0 % Lymphocytes (%) (Auto) 17.4 % Monocytes (%) (Auto) 8.2 % Eosinophils (%) (Auto) 3.7 % Basophils (%) (Auto) 0.7 % Neutrophils # (Auto) 6.2 TH/MM3 Lymphocytes # (Auto) 1.5 TH/MM3 Monocytes # (Auto) 0.7 TH/MM3 Eosinophils # (Auto) 0.3 TH/MM3 Basophils # (Auto) 0.1 TH/MM3 CBC Comment DIFF FINAL Differential Comment MDM Medical Record Reviewed: Yes Supervised Visit with MARTIN: Yes Narrative Course I incise and drain the abscess to the left upper medial thigh. See my procedure note. Procedures Procedure Narrative INCISION AND DRAINAGE OF ABSCESS: The area was prepped and was sterilely draped. A subcutaneous wheal of present 1% Xylocaine with a total number 3 mL was used to anesthetize the area properly. A number 11 scalpel was used to make a 1 -cm incision across the area of the abscess. The abscess was drained, complex loculations were broken down, and irrigated with normal saline. Cultures were obtained. Quarter inch iodoform packing was placed in the wound. Sterile dressing applied. Patient advised to have packing removed in two days. Codi Arreaga Jun 28, 2016 09:44
[2016-06-28 10:11] LABS: ALKALINE PHOSPHATASE 15 U/L (45-117); ALT (GPT) 17 U/L (10-53); ANION GAP 12 MEQ/L (5-15); AST (GOT) 14 U/L (15-37); BICARBONATE 19.1 MEQ/L (21.0-32.0); BLOOD UREA NITROGEN 9 MG/DL (7-18); CHLORIDE 99 MEQ/L (98-107); GLOMERULAR FILTRATION RATE 90 ML/MIN (>89); POTASSIUM 4.1 MEQ/L (3.5-5.1); SODIUM (NA) 130 MEQ/L (136-145); TOTAL BILIRUBIN ADULT 0.5 MG/DL (0.2-1.0)
[2016-06-28] MEDS ORDERED: LEVEMIR SQ (10:25)
[2016-06-28] MEDS ORDERED: BAYETES (10:25)
[2016-06-28] MEDS ORDERED: INSULIN SQ (10:25)
[2016-06-28] MEDS ORDERED: MOTR200T4 PO (10:25)
[2016-06-28] MEDS ORDERED: CLIN1CAP6 PO (10:25)
[2016-06-28] MEDS ORDERED: NOVOLOGP2 SQ (10:25)
[2016-06-28] MEDS ORDERED: INSULIN HUMAN REGULAR 1,000 UNITS/10 ML VIAL IV PUSH ONE (10:30)
[2016-06-28 11:00] VITALS: BP 133/80; PULSE 86; RESP 20; O2SAT 100
== END 2016-06-28 11:58 | disposition home or self-care (01) ==
LOC: NEPC 08:29
DX: L02.416 Cutaneous abscess of left lower limb (principal); E11.9 Type 2 diabetes mellitus without complications; B95.62 Methicillin resistant Staphylococcus aureus infection as the cause of diseases classified elsewhere; Z79.4 Long term (current) use of insulin
CPT/HCPCS: 10061; 80053; 82010; 83605; 85025; 86403; 87040; 87070; 87186; 96361; 96365; 96375; 99284; J1815; J7030

== ENCOUNTER 2016-06-30 18:26 | Emergency (ER) | payer SELFPAY ==
[~2016-06-30] VITALS: Ht 172.7 cm; Wt 110.0 kg
[~2016-06-30 18:26] MED LIST changes: +CLIN1CAP6 PO; +MOTR200T4 PO; -ZOFR4TAB3 SL
[2016-06-30 18:28] VITALS: BP 122/77; PULSE 86; RESP 15; TEMP 97.6; O2SAT 96
--- NOTE | 2016-06-30 18:53 | PD ---
HPI . left thigh abscess Chief Complaint: Wound/Suture/Staple Re-Check Time Seen by Provider: 18:53 Travel History International Travel<30 days: No Contact w/Intl Traveler<30days: No Traveled to known affect area: No History of Present Illness HPI 31-year-old female here with complaints of left thigh abscess. Patient was previously hospitalized for diabetes and had a left thigh abscess that was drained. Packing was placed approximately 48 hours ago and patient was advised to come to the emergency department to have it reassessed and repacked if necessary. The area of cellulitis was outlined with a skin marker and is significantly improved. Denies any fever or chills and she is taking her medications as prescribed. She does complain of pain to the area. PFSH Past Medical History Anxiety: Yes Depression: Yes Cancer: Yes (HX) Cardiovascular Problems: No Chemotherapy: No Cerebrovascular Accident: No Diabetes: Yes Patient Takes Glucophage: No Diminished Hearing: No Endocrine: Yes Gastrointestinal Disorders: No Genitourinary: No Headaches: Yes Immune Disorder: No Implanted Vascular Access Dvce: No Musculoskeletal: No Neurologic: Yes Psychiatric: Yes Reproductive: Yes Respiratory: No Immunizations Current: Yes Migraines: Yes Radiation Therapy: No Seizures: No Thyroid Disease: No Tetanus Vaccination: < 5 Years Influenza Vaccination: Yes ?: Not LMP: 06/02/16 : 0 Ovarian Cysts: Yes Past Surgical History Abdominal Surgery: Yes (GALL BLADDER) AICD: No Arteriovenous Shunt: No Cardiac Surgery: No Cholecystectomy: Yes Ear Surgery: No Endocrine Surgery: No Genitourinary Surgery: Yes Gynecologic Surgery: Yes (LEEP) Insulin Pump: No Joint Replacement: No Neurologic Surgery: No Oral Surgery: No Pacemaker: No Thoracic Surgery: No Other Surgery: Yes Social History Alcohol Use: No Tobacco Use: No (denies) Substance Use: No Allergies-Medications (Allergen,Severity, Reaction): Coded Allergies: Dilaudid (Verified Allergy, Severe, RASH, SEVERE STOMACH PAINS, 06/30/16) Morphine (Verified Allergy, Severe, ITCHING, HYSTERICAL, 06/30/16) Shellfish (Verified Allergy, Unknown, 06/30/16) Reported Meds & Prescriptions Reported Meds & Active Scripts Active Motrin Ib (Ibuprofen) 200 Mg Tab 600 Mg PO Q6H PRN Clindamycin (Clindamycin HCl) 300 Mg Cap 600 Mg PO Q8H 7 Days Otis Contour Blood Gluco (Glucose Blood) 1 Kari Kari 1 Strip .ROUTE 5 TIMES A DAY Patient is a brittle diabetic that needs to check her blood glucose at least 5times daily. Levemir Inj (Insulin Detemir) 1,000 unit/ 10 ML Vial 50 Units SQ BID Do not mix with any other Insulin. [Insulin syringes] Box SQ Use as directed Novolog Inj (Insulin Aspart) 1,000 Unit/10 Ml Vial 0 SQ DIRECTED Sliding Scale as directed. Gabapentin 300 Mg Cap 300 Mg PO TID Review of Systems General / Constitutional: No: Fever Eyes: No: Visual changes HENT: No: Headaches Cardiovascular: No: Chest Pain or Discomfort Respiratory: No: Shortness of Breath Gastrointestinal: No: Abdominal Pain Genitourinary: No: Dysuria Musculoskeletal: No: Pain Skin: Positive Other (left thigh abscess ), No Rash Neurologic: No: Weakness Psychiatric: No: Depression Endocrine: No: Polydipsia Hematologic/Lymphatic: No: Easy Bruising Physical Exam Narrative GENERAL: AAO x 3, no acute distress, Well-nourished, well-developed patient. SKIN: Warm and dry. No visible rashes or bruising. Left thigh with small area of cellulitis now measuring approximately 4 cm in diameter. There is minimal induration. No fluctuance. Packing removed and there is no purulent drainage. HEAD: Normocephalic and atraumatic. EYES: No scleral icterus. No injection or drainage. ENT: No nasal drainage noted. Mucous membranes pink. Airway patent. NECK: Supple, trachea midline. No JVD. CARDIOVASCULAR: Regular rate and rhythm without murmurs, gallops, or rubs. RESPIRATORY: Breath sounds equal bilaterally. No accessory muscle use. No rhonchi or rales. GASTROINTESTINAL: Visual inspection normal EXTREMITIES: No cyanosis or edema. BACK: Nontender without obvious deformity. No CVA tenderness. PSYCH: AAO x 3, normal affect. Data Data Last Documented VS Vital Signs Date Time Temp Pulse Resp B/P Pulse Ox O2 Delivery O2 Flow Rate FiO2 06/30/16 18:28 97.6 86 15 122/77 96 MDM Medical Decision Making Medical Screen Exam Complete: Yes Emergency Medical Condition: Yes Medical Record Reviewed: Yes Differential Diagnosis left thigh abscess, cellulitis, less likely sepsis Narrative Course 31-year-old female here with complaints of left thigh abscess. Patient was previously hospitalized for diabetes and had a left thigh abscess that was drained. Packing was placed approximately 48 hours ago and patient was advised to come to the emergency department to have it reassessed and repacked if necessary. The area of cellulitis was outlined with a skin marker and is significantly improved. Denies any fever or chills and she is taking her medications as prescribed. She does complain of pain to the area. Patient seen and examined. Packing was removed and the wound actually looks very good. It has receded well into the margins that were previously marked. There is only about a 4 cm area of erythema. Additional packing is not required. Recommend to continue antibiotics which MRSA is sensitive to per her micro reports. I advised her if any worsening of the site to return to the emergency department. Patient verbalized understanding of instructions, questions were answered, and thanked me for their care. I advised them if their condition worsens, please return to the nearest emergency room for further care. Procedures Procedure Narrative abscess packing removal left thigh packing removed area cleaned with saline no drainage present area dressed with sterile dressing by Ciro BLANCHARD Diagnosis Primary Impression: Abscess of left thigh Patient Instructions: Acute Wound Care (ED), General Instructions Additional Instructions: Continue antibiotics until complete. [place] for worsening signs of infection which include increased fever, redness , increased warmth, purulent drainage, increased swelling or streaking. If any of these develop, please go to the nearest emergency department. Please return to emergency department if your symptoms return or worsen. Follow up with your primary care provider. Take medications as prescribed. Use Ibuprofen or tylenol as needed for pain. Med/Other Pt SpecificInfo: No Change to Meds Disposition: 01 DISCHARGE HOME Condition: Stable Virgen Munoz Jun 30, 2016 18:53
== END 2016-06-30 19:11 | disposition home or self-care (01) ==
LOC: NEPK 18:26
DX: Z48.01 Encounter for change or removal of surgical wound dressing (principal); L02.416 Cutaneous abscess of left lower limb
CPT/HCPCS: 99281